=== PATIENT | male | born 1945 | race Caucasian/White ===

== ENCOUNTER → 2017-04-18 | Outpatient (CLI) | payer MEDICARE, BC ==
[~2017-04-18] MED LIST: ASPIRIN PO; ASPIRIN325 M1 PO; ASPIRIN81 M1 PO; GLUCOTROL PO; LISINOPRIL-HCTZ1 T16 PO; LISINOPRIL-HCTZ1 T19 PO; METFORMIN HCL850 MG PO; METFORMIN PO; NORVIR100 M1 PO; NORVIR100 MG PO; PRAVACHOL PO; PRAVACHOL20 MG PO; PRENATAL MULITV1 TAB PO; PRENATAL1 TA1 PO; PRILOSEC PO; REYATAZ150 MG PO; REYATAZ300 MG PO; TRUVADA 200 MG1 EACH PO; TRUVADA TABLET1 TA1 PO; ZESTORETIC 20/21 TAB PO; [UNRECOGNIZED DRUG - OTHER]
[2017-04-18 08:40] LABS: ALBUMIN SERUM 4.2 g/dL (3.5-5.0); BILIRUBIN,TOTAL 1.2 mg/dL (0.2-2.0); CALCIUM SERUM 8.4 mg/dL (8.4-10.2); GLOM FILT RATE Estimated 75.4 mL/min (>60); POTASSIUM 3.7 mmol/L (3.5-5.1); PROTEIN TOTAL SERUM 7.2 g/dL (6.0-8.3)
[2017-04-19 16:47] LABS: MICROALB UR (PNL) 6.4 mg/dL (***)
== END | disposition home or self-care (01) ==
LOC: SLAB 08:03
PROVIDERS: Internal Medicine Endocrinology, Diabetes & Metabolism
DX: E11.9 Type 2 diabetes mellitus without complications (principal); E78.5 Hyperlipidemia, unspecified
CPT/HCPCS: 36415; 80053; 80061; 82043; 82570; 83036